=== PATIENT | male | born 1980 | race Caucasian/White ===

== ENCOUNTER 2020-10-29 15:52 | Emergency (ER) | payer BC, SELFPAY ==
[2020-10-29 15:57] VITALS: BP 145/84; PULSE 74; RESP 18; TEMP 37.1; O2SAT 98; BMI 24.4
[2020-10-29] MEDS: tetanus-dipt-pertussis 0.5 mL SDV IM (16:19)
[2020-10-29] MEDS: lidocaine 1% INJ 20 mL INJECTION (16:21)
[2020-10-29 16:31] VITALS: BP 117/72; PULSE 70; RESP 16; O2SAT 94
--- NOTE | 2020-10-29 16:43 | W.ED.WOUNDLC ---
HPI - Wound/Laceration General: Chief Complaint: Wound/Laceration Stated Complaint: cut thumb Time Seen by Provider: 10/29/20 16:13 Source: patient Mode of arrival: ambulatory Limitations: no limitations History of Present Illness: HPI narrative: 40-year-old male patient presents to the emergency room with laceration to the left thumb. He reports was utilizing a box puller when he accidentally cut his thumb. Bleeding controlled upon exam, pressure dressing applied prior to arrival. Unknown last date of tetanus shot. He reports nausea and light-headed with looking at the wound. Onset (ago): hour(s) (1) Extremity Location: Left: hand (thumb) Place: home Patient tetanus UTD: No Context: accidental Associated symptoms: Reports no associated symptoms; Denies chills, fever(s), nausea or vomiting Treatments prior to arrival: bandage Review of Systems General: Reports: 10 or more systems reviewed and unremarkable except in HPI and below Const: Denies: fever(s), chills or diaphoresis Eyes: Denies: blurry vision or eye redness ENMT: Denies: throat pain, dental pain or disequilibrium Card: Denies: chest pain, palpitations or irregular heart rhythm Resp: Denies: dyspnea, productive cough, non-productive cough or wheezing GI: Denies: abdominal pain, nausea or vomiting : Denies: dysuria Musc: Denies: back pain Skin/Breast: Reports: skin tenderness and other (laceration left thumb); Denies: rash or pruritus Neuro: Denies: headache(s), weakness in extremities or behavioral changes Psych: Denies: anxiety or depression Isauro/Lymph: Denies: easy bruising [facility] PFSH: Medical History Healthy adult Physical Exam Const: COMMON NORMALS: no acute distress, patient oriented x3, healthy appearing and alert GENERAL APPEARANCE: cooperative, comfortable and well hydrated HENMT: COMMON NORMALS: normocephalic, Normal external nose present and moist oral mucous membranes HEAD & SCALP: normocephalic NOSE: Normal external nose present Eye: COMMON NORMALS: Equal, round and reactive pupils present and EOMs intact bilaterally GENERAL EYE: appearance normal, both eyes and all related structures PUPIL: Yes Equal, round and reactive pupils present Neck/C-Spine: COMMON NORMALS: full ROM and no lymphadenopathy GENERAL: Yes normal visual inspection and Yes trachea midline CERVICAL SPINE: Yes cervical ROM normal Lymph: LYMPHATIC: no lymphadenopathy noted Chest: COMMONS NORMALS: normal inspection of the chest Resp: COMMON NORMALS: normal respiratory effort and clear to auscultation bilaterally AUSCULTATION: clear to auscultation bilaterally Cardio: COMMON NORMALS: regular rhythm, S1 normal heart sound present and S2 normal heart sound present RHYTHM: regular rhythm HEART SOUNDS: S1 normal heart sound present and S2 normal heart sound present GI: COMMON NORMALS: Soft to palpation and non-tender INSPECTION: Yes normal to inspection PALPATION: Yes Soft to palpation : COMMON NORMALS: Yes no CVA tenderness BLADDER/KIDNEY EXAM: Yes no CVA tenderness Back/Pelvis: COMMON NORMALS: no CVA tenderness and thoracic and lumbar spine normal to inspection Extremity: COMMON NORMALS: normal to inspection, full ROM, capillary refill normal, no clubbing, cyanosis or edema and no pedal edema GENERAL: Yes normal exam except as noted OTHER: Full flexion-extension of the left thumb, flap laceration noted to the radial side. Bleeding controlled upon exam. Distal circulation intact. Neuro: COMMON NORMALS: patient oriented x3 and no focal motor deficits SENSORIUM/ORIENTATION: Yes alert Psych: COMMON NORMALS: mental status grossly normal, Normal thought process present and cooperative ACTIVITY/MOTOR BEHAVIOR: Yes appropriate eye contact THOUGHT PROCESS: Normal thought process present Skin: COMMON NORMALS: no rashes or lesions noted and turgor normal GENERAL SKIN EXAM: no rashes or lesions noted, elasticity normal and turgor normal WOUNDS: Yes wounds noted size (3.0) and margins (Approximated) well approximated HAIR: normal NAILS: normal Procedures Laceration Laceration 1: Site: hand (left thumb) Side (If applicable): left Size (cm): 3.0 Description: flap Depth: simple, single layer Pre-repair: wound explored, irrigated extensively, deep structures intact and extensive debridement Skin layer closed with: nylon Size (cm): 4-0 Number of sutures: 4 Technique: simple, interrupted Nerve Block Nerve Block 1: Time out performed: Yes Local Anesthetic: lidocaine 1% Amount of anesthesia used (mL): 8 Side: left Nerve Blocks: digital (thumb, left) Procedure Successful: Yes Patient Tolerated Procedure: well Complications: none Course Vital Signs: Vital signs: Vital Signs Temperature 98.7 F 10/29/20 15:57 Pulse Rate 70 10/29/20 16:31 Respiratory Rate 16 10/29/20 16:31 Blood Pressure 117/72 10/29/20 16:31 Pulse Oximetry 94 10/29/20 16:31 Discharge Plan Discharge Patient Disposition: Home Clinical Impression: Laceration of left thumb Qualifiers: Encounter type: initial encounter Damage to nail status: without damage Foreign body presence: without foreign body Qualified Code(s): S61.012A - Laceration without foreign body of left thumb without damage to nail, initial encounter Condition: Stable Discharge Orders: Discharge ED (Routine); Ordered 10/29/20 Ordered By: Yolanda Cerna Discharge Diet: Usual diet Discharge Activity: Limit activity as instructed Patient Instructions: Suture Care (ED), Laceration (ED), Opioid Safety Activity Restrictions/Additional Instructions: Sutures out in 7 days Keep thumb straight to avoid tension on the sutures Monitor for signs and symptoms of infection such as redness swelling or malodorous drainage, if occurs, may return to the emergency department or follow-up with your primary care provider May apply Neosporin/triple antibiotic ointment twice daily as needed, may leave open to air, do not submerge sutures in water. May gently cleanse and pat dry Coding Level of Care Code ED [employer] for Gurmeet Marquez
[2020-10-29] MEDS: ondansetron 2 mg/ML SDV 2 mL 4 MG IM (16:45)
== END 2020-10-29 17:01 | disposition home or self-care (01) ==
PROVIDERS: Emergency Provider Nurse Practitioner Family
DX: S61.012A Laceration without foreign body of left thumb without damage to nail, initial encounter (principal); W26.0XXA Contact with knife, initial encounter; Z23 Encounter for immunization
CPT/HCPCS: 12002; 90471; 90715; 96372; 99283; A6446; J2405